=== PATIENT | female | born 1975 | race Caucasian/White ===

== ENCOUNTER → 2017-04-19 | Outpatient (CLI) | payer BC ==
--- NOTE | 2017-04-19 13:00 | MM ---
Reason for exam: screening (asymptomatic). Baseline mammogram. History: Patient history of other cancer. Physical Findings: Dr. Dixon did not find any significant physical abnormalities on exam. MG Screening Mammo w CAD Bilateral CC and MLO view(s) were taken. The breast tissue is heterogeneously dense. This may lower the sensitivity of mammography. Finding: There are typically benign calcifications in the right breast. There is no discrete abnormality. These results were verbally communicated with the patient and result sheet given to the patient on 04/19/17. ASSESSMENT: Benign, BI-RAD 2 RECOMMENDATION: Routine screening mammogram of both breasts in 1 year.
--- NOTE | 2017-04-19 13:19 | WWHP ---
DATE OF SERVICE: 04/19/2017 CHIEF COMPLAINT: The patient is here for her routine gynecologic exam and mammogram. HPI: This is a 41-year-old, G2, P2 with an LMP of 03/27/17, who is status post tubal ligation. The patient states it has been about 10 years since her last pelvic exam. She states she has a long history of heavy menstrual periods. They typically are regular every month and can last 7 days with 3 days of heavier flow. On the heavy days, she has to change her protection about every one hour and does pass clots. She denies any significant problems with menstrual pain. PAST MEDICAL HISTORY: Skin cancer and this included basal cell cancer, but also melanoma skin cancer in 2013. She has had occasional pains in her stomach, which improved with omeprazole, but apparently did not have an ulcer. MEDICATIONS: 1. Vitamin D3, 2000 units daily. 2. Iron supplement 325 mg daily. 3. Omeprazole 20 mg daily. ALLERGIES: No known drug allergies. PAST SURGICAL HISTORY: Tubal ligation in 1995, ganglion cyst removed from her left wrist in 1995, basal cell carcinoma removed in 2004, septoplasty 2012, melanoma removed in 2013. She also states she had a D&C for heavy periods in the past. PAST OB HISTORY: Two vaginal deliveries. 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 She denies any STDs in the past. SOCIAL HISTORY: She quit smoking in 2014. She has about 10 alcoholic drinks per month and denies drug use. 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 She enjoys playing volleyball. FAMILY HISTORY: Uncle had diabetes. Mother had hypertension. Uncle had heart disease. Grandfather had heart disease. She denies family history of cancer of the breast, uterus, ovaries or colon. REVIEW OF SYSTEMS: She has gained nearly 40 pounds over the last 2-1/2 years since quitting smoking. She denies respiratory, cardiac, or GI problems. PHYSICAL EXAM: Blood pressure 125/84. Height 5 feet 9 inches. Weight 211 pounds. Temperature 96.1, pulse 82. This is a well-developed, well-nourished white female who is alert and oriented x3 in no acute distress. HEENT is within normal limits. NECK: Supple without mass or thyromegaly. CHEST AND LUNGS: Clear to auscultation. HEART: Regular rate and rhythm. Breasts are without mass or discharge. Axillary exam is negative for adenopathy. BACK: Negative for CVA tenderness. ABDOMEN: Soft, nontender, without palpable masses. PELVIC EXAM: Normal external genitalia. Cervix appears multiparous and is without lesions. There is no unusual discharge. There is no evidence of prolapse. The uterus is midposition, nongravid size and nontender. There are no palpable adnexal masses or tenderness. Rectal exam is negative for mass or tenderness and is negative for occult blood. EXTREMITIES: Nontender. IMPRESSION: 1. A 41-year-old female with normal gynecologic exam. 2. Long history of hypermenorrhea with regular menses. 3. Status post tubal ligation. PLAN: 1. Pap smear was performed. 2. Self breast examination was discussed. 3. Mammogram will be done today. This will be a baseline screening mammogram. 4. Trial of meclofenamate sodium 100 mg t.i.d. p.r.n. for heavy menstrual flow up to 6 days per cycle. If she does not notice any significant improvement over the next 3 months she will call. At that time we can discuss the option of endometrial ablation. 5. Pelvic ultrasound will be scheduled to further evaluate the uterus because of her hypermenorrhea. 6. She will also return in one year. ANDRES
== END | disposition home or self-care (01) ==
LOC: WWCWWP 09:14
PROVIDERS: ATTEND Obstetrics & Gynecology
DX: Z12.31 Encounter for screening mammogram for malignant neoplasm of breast (principal)

== ENCOUNTER → 2019-09-28 | Outpatient (CLI) | payer BC ==
--- NOTE | 2019-10-01 08:57 | MM ---
Reason for exam: screening (asymptomatic). Last mammogram was performed 2 years and 5 months ago. History: Patient history of other cancer. Physical Findings: A clinical breast exam by your physician is recommended on an annual basis and results should be correlated with mammographic findings. MG 3D Screening Mammo W/Cad Bilateral CC and MLO view(s) were taken. Prior study comparison: April 19, 2017, bilateral MG screening mammo w CAD. The breast tissue is extremely dense which could obscure a lesion on mammography. No suspicious abnormality. No significant changes when compared with prior studies. ASSESSMENT: Negative, BI-RAD 1 RECOMMENDATION: Routine screening mammogram of both breasts in 1 year.
== END | disposition home or self-care (01) ==
LOC: RADMAMWWP 08:18
PROVIDERS: ATTEND Family Medicine
DX: Z12.39 Encounter for other screening for malignant neoplasm of breast (principal)
CPT/HCPCS: 77063; 77067

== ENCOUNTER → 2021-03-24 | Outpatient (CLI) | payer BC ==
[2021-03-24 10:46] VITALS: BP 131/80; PULSE 71; RESP 16; TEMP 98
--- NOTE | 2021-03-24 11:42 | P.HPOB ---
History of Present Illness H&P Date: 03/24/21 Chief Complaint: The patient is here for her routine gynecologic exam and ma mmogram. This is a 45-year-old with an LMP of 03/08/2021. The patient is status post tubal ligation. Her menstrual periods are regular every month but continue to be quite heavy. They typically last 5 days with 3 days of heavier flow. She often has to use double protection and has to change her protection up to every 1 hour. She does have some mild cramping which is not a big problem for her. She is currently in the process of getting a divorce. She has been with her new boyfriend for about 1 year and they do live together. They are sexually active and do not use condoms. She was experiencing some discharge with slight odor and was treated for bacterial vaginosis by her PCP about 2 months ago. The odor has improved but still notices a slight thin milky discharge and some vaginal irritation near the opening. Review of Systems She has lost about 45 pounds over the past 4 years. She denies respiratory, cardiac, or GI problems. Past Medical History Past Medical History: Cancer Additional Past Medical History / Comment(s): HX OF SKIN CA-basal cell, HX OF HEART PALPITATIONS IN PAST. 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 History of Any Multi-Drug Resistant Organisms: None Reported Past Surgical History: Heart Catheterization, Orthopedic Surgery, Tubal Ligation Additional Past Surgical History / Comment(s): LEFT WRIST GANGLION CYST REMOVED, BASAL CELL REMOVED FROM FACE, SEPTOPLASTY, melanoma removed from chest and abd Additional Past Anesthesia/Blood Transfusion Reaction / Comment(s): STATES GET HEADACHES POST OP Past Psychological History: No Psychological Hx Reported Smoking Status: Former smoker Past Alcohol Use History: Occasional (2 or 3 per week.) Additional Past Alcohol Use History / Comment(s): Quit smoking in 2014. Past Drug Use History: None Reported Additional History: She is in the process of getting a divorce. She has been with her boyfriend since 2019 and do live together. 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 - Past Family History Mother Family Medical History: Hypertension Uncle Family Medical History: Diabetes Mellitus Additional Family Medical History / Comment(s): Heart disease. Medications and Allergies Home Medications Medication Instructions Recorded Confirmed Type Multivitamins, Thera [Multivitamin] 1 tab PO DAILY 09/23/15 03/24/21 History Allergies Allergy/AdvReac Type Severity Reaction Status Date / Time codeine Allergy Rash/Hives Unverified 03/24/21 10:39 Exam Vital Signs Temp Pulse Resp BP Pulse Ox 03/24/21 10:40 98.0 F 71 16 131/80 98 Intake and Output 03/23/21 03/24/21 03/24/21 22:59 06:59 14:59 Other: Weight 75.296 kg Height 5 feet 8 inches, weight 166 pounds, BMI 25.2. This is a well-developed well-nourished white female who is alert and oriented times 3 in no acute distress. HEENT: Within normal limits. NECK: Supple without mass or thyromegaly. CHEST AND LUNGS: Clear to auscultation. HEART: Regular rate and rhythm. BREASTS: Are without mass or discharge. AXILLARY EXAM: Negative for adenopathy. BACK: Negative for CVA tenderness. ABDOMEN: Soft, nontender, without palpable masses. PELVIC EXAM: Normal external genitalia. Cervix and vagina appear normal. There is no unusual discharge. There is no evidence of prolapse. The uterus is midposition, nongravid size and nontender. There are no palpable adnexal masses or tenderness. RECTAL EXAM: negative for mass or tenderness and is negative for occult blood. EXTREMITIES: Nontender. IMPRESSION: 1. 45-year-old female status post tubal ligation with normal gynecologic exam. 2. Complaint of slight discharge and slight vaginal irritation. The patient was treated for bacterial vaginosis 2 months ago with some improvement. Differential diagnosis will include Physiologic discharge, luke vaginitis, bacterial vaginosis, Trichomonas, GC and chlamydia. 3. Hypermenorrhea not improved with meclofenamate sodium PLAN: 1. Pap smear cotest was performed. 2. Self breast awareness was discussed with the patient. 3. Affirm vaginitis panel was obtained from the vagina to check for luke, Gardnerella, and Trichomonas. 4. GC and Chlamydia testing was obtained from the cervix. 5. STD prevention was discussed with the patient. I have stressed the importance of limiting sexual partners. 6. Blood STD testing was offered, but declined at this time. 7. We have discussed options for her hypermenorrhea including oral contraception, the Mirena IUD and endometrial ablation. She is interested in getting the endometrial ablation. She will be referred to Dr. Ponce for this. The ACOG FAQ handout on endometrial ablation was given to the patient. 8. She was advised to return in one year for her annual well woman exam and as needed.
[2021-03-25 04:54] LABS: Gardnerella Negative (Negative); Source Vagina; Trichomonas Negative (Negative)
--- NOTE | 2021-03-25 08:44 | MM ---
Reason for exam: screening (asymptomatic). Last mammogram was performed 1 year and 6 months ago. History: Patient history of other cancer. Physical Findings: A clinical breast exam by your physician is recommended on an annual basis and results should be correlated with mammographic findings. MG 3D Screening Mammo W/Cad Bilateral CC and MLO view(s) were taken. Prior study comparison: September 28, 2019, bilateral MG 3d screening mammo w/cad. April 19, 2017, bilateral MG screening mammo w CAD. The breast tissue is extremely dense which could obscure a lesion on mammography. Stable scattered punctate calcification right breast. There is no discrete abnormality. No significant changes when compared with prior studies. ASSESSMENT: Benign, BI-RAD 2 RECOMMENDATION: Routine screening mammogram of both breasts in 1 year.
--- NOTE | 2021-03-25 13:00 | P.PN ---
Progress Note - Text Progress Note Date: 03/25/21 OUTPATIENT FOLLOW-UP NOTE TEST(S)/RESULTS: Affirm vaginitis panel testing done on 03/24/2021 was negative for Zoe, Gardnerella, and Trichomonas. METHOD OF NOTIFICATION: Patient was notified by phone. PATIENT COMMENTS: DIAGNOSIS: Negative affirm testing for Zoe, Gardnerella, and Trichomonas. DISCUSSION: Other tests are still pending including GC, chlamydia and Pap smear test. We have had a discussion regarding ways to maintain good vaginal health. PLAN: As above. Await additional testing from 03/24/2021.
[2021-03-25 14:31] LABS: C. trachomatis,PCR Negative (Neg,Equiv); Chlamydia trachomatis Source Cervix; N. gonorrhoeae,PCR Negative (Neg,Equiv); Neisseria Source Cervix
== END ==
LOC: WWCWWP 10:32
PROVIDERS: ATTEND Obstetrics & Gynecology
DX: Z01.419 Encounter for gynecological examination (general) (routine) without abnormal findings (principal); N89.8 Other specified noninflammatory disorders of vagina; Z12.31 Encounter for screening mammogram for malignant neoplasm of breast; N92.0 Excessive and frequent menstruation with regular cycle; Z85.820 Personal history of malignant melanoma of skin; Z87.891 Personal history of nicotine dependence; Z98.51 Tubal ligation status
CPT/HCPCS: 77063; 77067; 87480; 87491; 87510; 87591; 87660

== ENCOUNTER → 2021-04-14 | Outpatient (CLI) | payer BC ==
[2021-04-14 12:30] LABS: Anisocytosis Slight; Basophils % (A) 0 %; Eosinophils % (A) 0 %; HCT 38.3 % (34.0-46.0); HGB 12.7 gm/dL (11.4-16.0); Lymphocytes % (A) 13 %; MCH 30.1 pg (25.0-35.0); MCHC 33.1 g/dL (31.0-37.0); MCV 90.8 fL (80.0-100.0); Mean Platelet Volume 7.1; Monocytes # (A) 0.3 k/uL (0-1.0); Monocytes % (A) 4 %; Neutrophils # (A) 6.1 k/uL (1.3-7.7); Neutrophils % (A) 82 %; Platelet Count 276 k/uL (150-450); RBC 4.22 m/uL (3.80-5.40); RDW 16.3 % (11.5-15.5); WBC 7.4 k/uL (3.8-10.6)
== END | disposition home or self-care (01) ==
LOC: LABPAT 11:26
PROVIDERS: ATTEND Obstetrics & Gynecology
DX: Z01.812 Encounter for preprocedural laboratory examination (principal); N92.0 Excessive and frequent menstruation with regular cycle
CPT/HCPCS: 36415; 85025

== ENCOUNTER 2021-04-17 09:42 | Day surgery (SDC) | payer BC ==
[2021-04-14 15:35] VITALS: BMI 23.6
[~2021-04-17 09:42] MED LIST: DEXAMETHASONE SOD PHOSPHATE 4 MG/ML 1 ML VIAL IV ONE; LACTATED RINGERS 1,000 ML IV SCH; MIDAZOLAM 2 MG/2 ML VIAL IV PRN; ONDANSETRON 4 MG/2 ML VIAL IVP ONE; Pre Op ABX Message 1 EACH MISC MISCELLANE ONE; SCOPOLAMINE 1.5MG/72HR PATCH TRANSDERM ONE; fentaNYL (PF) 50 MCG/ML 2 ML AMP IV PRN
[2021-04-17] MEDS ORDERED: fentaNYL (PF) 50 MCG/ML 2 ML AMP ONE (12:02)
[2021-04-17] MEDS ORDERED: KETOROLAC 15 MG/ML 1 ML VIAL ONE (12:02)
[2021-04-17] MEDS ORDERED: MIDAZOLAM 2 MG/2 ML VIAL ONE (12:02)
[2021-04-17] MEDS ORDERED: LIDOCAINE 1% INJ 10MG/ML (20 ML MDV) ONE (12:02)
[2021-04-17] MEDS ORDERED: PROPOFOL 10 MG/ML 20 ML VIAL IV ONE (12:02)
[2021-04-17] MEDS ORDERED: LACTATED RINGERS 1,000 ML IV ONE ×2 (12:41→12:50)
[2021-04-17] MEDS ORDERED: ONDANSETRON 4 MG/2 ML VIAL IVP PRN (12:44)
[2021-04-17] MEDS ORDERED: SIMETHICONE 80 MG CHEWABLE PO PRN (12:44)
[2021-04-17] MEDS ORDERED: KETOROLAC 15 MG/ML 1 ML VIAL IVP PRN (12:44)
[2021-04-17] MEDS ORDERED: diphenhydrAMINE 50 MG/ML 1 ML VIAL IVP PRN (12:44)
[2021-04-17] MEDS ORDERED: METOCLOPRAMIDE 5 MG/ML 2 ML VIAL IVP PRN (12:44)
[2021-04-17] MEDS ORDERED: IBUPROFEN 600 MG TAB PO PRN (12:44)
[2021-04-17] MEDS ORDERED: LACTATED RINGERS 1,000 ML IV SCH (12:45)
--- NOTE | 2021-04-17 12:54 | P.OP ---
Date of Procedure: 04/17/21 Preoperative Diagnosis: #1. Menorrhagia #2 anemia Postoperative Diagnosis: Same plus #3. Possible endometrial polyp Procedure(s) Performed: #1. Diagnostic hysteroscopy #2. Dilation and curettage #3. NovaSure endometrial ablation Anesthesia: other (Gen. by LMA) Surgeon: Donal Ponce Estimated Blood Loss (ml): 5 IV fluids (ml): 300 Urine output (ml): 150 Pathology: other (Endometrial curettings, possible polyp) Condition: stable Disposition: PACU Operative Findings: Preoperatively, the patient was found with a roughly 5 week anteverted mobile normal shaped uterus with normal adnexa bilaterally. Intraoperatively, the u terus sounded to 9 cm with a cervical length of approximately 3.5 cm. Using the hysteroscope, there was a moderate amount of shaggy tissue noted throughout the endometrial cavity. The bilateral tubal ostia were seen. Was a small structure that appeared consistent with a small polyp on the patient's right posterior lower uterine segment which was thought to been removed with the polyp forceps. There was a small to moderate amount of tissue removed with and major curettage which was done secondary to the amount of tissue noted with the scope. The settings for the NovaSure tool where a length of 5.5 cm, a width of 4.7 cm for a total power 142 W. After a run time of 86 seconds, the base unit read "procedure complete." The postprocedural result appeared to be excellent. The patient is an adequate candidate for vaginal hysterectomy should it become necessary. Description of Procedure: The patient was prepped and draped in usual fashion after general anesthesia was achieved by the anesthesiologist. A weighted speculum was placed and the bladder drained of approximately 150 mL of clear fatoumata urine. The anterior lip the cervix was grasped with a single-tooth tenaculum and the uterus and cervix sounded to 9 cm and 3.5 cm as noted above. The cervix was serially dilated to admit the diagnostic hysteroscope which was placed in the fundus and the cavity dilated with normal saline. The findings are as noted above with a fairly significant amount of shaggy tissue throughout the endometrial cavity and one specific spot in the right posterior lower uterine segment the lateral edge which appeared to be polypoid in nature. As a result, the decision was made to proceed with curettage. The scope was set aside and a Telfa placed in the vagina. A small sharp curette was introduced into the endometrial cavity and thorough and circumferential curettage carried out removing the tissue onto the Telfa in the vagina. The small to moderate amount of tissue was returned. After adequate curettage and several passes, the sharp curet was set aside and the polyp forceps introduced with specific attention paid to the area of concern for the polyp. After the first pass, there did appear to be a polypoid structure removed. Was included with the pathology for curettage. Several further passes were made with polyp forceps with minimal return of tissue. After adequate curettage and use of the polyp forceps, the NovaSure tool was placed into the endometrial cavity, opened, and seated well. The settings for the tool where a length of 5.5 cm, a width of 4.7 cm for a total power of 142 W. The cervix was sealed and the cavity check was attempted and passed without difficulty allowing us to enable the tool. The run was started and, after a total run time of 86 seconds, the base unit read "procedure complete." The tool was removed and discarded and the diagnostic scope replaced with result appearing to be excellent. The patient is a possible candidate for vaginal hysterectomy should it become necessary in the future. All instrumentation was removed from the patient including the tenaculum. There was no ongoing bleeding from either the cervix or the tenaculum sites. I spent a blood loss for the entire case was 5 mL or less. There are no complications. All sponge, instrument, needle counts were correct. The patient tolerated the procedure well and proceeded to the recovery room in stable condition.
[2021-04-17 12:59] VITALS: TEMP 96.9
[2021-04-17 13:23] VITALS: RESP 16
[2021-04-17] MEDS ORDERED: ACETAMINOPHEN TAB 500 MG TAB PO ONE (14:00)
[2021-04-17] MEDS ORDERED: ACETAMINOPHEN TAB 500 MG TAB ONE (14:00)
[2021-04-17 14:20] VITALS: BP 145/86; PULSE 66
[2021-04-18] MEDS ORDERED: ACETAMINOPHEN TAB 325 MG TAB PO PRN (12:45)
== END 2021-04-17 14:47 | disposition home or self-care (01) ==
LOC: OR 09:42
PROVIDERS: ATTEND Obstetrics & Gynecology
DX: N92.0 Excessive and frequent menstruation with regular cycle (principal); D64.9 Anemia, unspecified; Z85.828 Personal history of other malignant neoplasm of skin; Z98.51 Tubal ligation status; Z98.890 Other specified postprocedural states; Z82.49 Family history of ischemic heart disease and other diseases of the circulatory system; Z83.3 Family history of diabetes mellitus; Z87.891 Personal history of nicotine dependence; Z88.5 Allergy status to narcotic agent; R00.2 Palpitations
CPT/HCPCS: 81025; 88305; 58563; J2250; J1100; J2405; J2001; J3010; J1885; J2704

== ENCOUNTER → 2023-04-13 | Outpatient (CLI) | payer BC ==
--- NOTE | 2023-04-13 10:52 | MM ---
Reason for Exam: Screening (asymptomatic). Last mammogram was performed 2 year(s) and 1 month(s) ago. Patient History: Menarche at age 11. First Full-Term at age 19. Risk Values: Annabella 5 year model risk: 0.8%. NCI Lifetime model risk: 8.2%. Prior Study Comparison: 04/19/2017 Bilateral Screening Mammogram, [facility]. 09/28/2019 Bilateral Screening Mammogram, [facility]. 03/24/2021 Bilateral Screening Mammogram, [facility]. Tissue Density: The breast tissue is extremely dense which could obscure a lesion on mammography. Findings: Analyzed By CAD. There is no suspicious group of microcalcifications or new suspicious mass in either breast. Benign-appearing round calcifications within both breasts. Overall Assessment: Benign, BI-RAD 2 Management: Screening Mammogram of both breasts in 1 year. A clinical breast exam by your physician is recommended on an annual basis and results should be correlated with mammographic findings. Electronically signed and approved by: Gera Jordan D.O.
--- NOTE | 2023-04-13 11:54 | P.HPOB ---
History of Present Illness H&P Date: 04/13/23 Chief Complaint: The patient is here for her routine gynecologic exam and ma mmogram. This is a 47-year-old with an LMP of 03/22/2023. She is status post tubal ligation and status post endometrial ablation in 2020. The endometrial ablation was done for heavy menstrual flow. She states she still has regular monthly periods lasting 7 days but the flow is very light, to the point where she usually does not have to wear protection. She does have regular menstrual cr amps which are not a problem. She is without gynecologic complaints. Review of Systems The patient has lost 4 pounds over the last 2 years. She denies respiratory or cardiac problems. GI: Some constipation which is not new for her. Past Medical History Past Medical History: Cancer Additional Past Medical History / Comment(s): HX OF SKIN CA-basal cell, HX OF HEART PALPITATIONS IN PAST. 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 History of Any Multi-Drug Resistant Organisms: None Reported Past Surgical History: Heart Catheterization, Orthopedic Surgery, Tubal Ligation, Uterine Ablation Additional Past Surgical History / Comment(s): LEFT WRIST GANGLION CYST REMOVED, BASAL CELL REMOVED FROM FACE, SEPTOPLASTY, melanoma removed from chest and abd. Endometrial ablation 2020. Additional Past Anesthesia/Blood Transfusion Reaction / Comment(s): STATES GET HEADACHES POST OP Past Psychological History: No Psychological Hx Reported Smoking Status: Former smoker Past Alcohol Use History: Occasional (0-3 per week) Additional Past Alcohol Use History / Comment(s): Quit smoking in 2014. Past Drug Use History: None Reported Additional History: She is . She has been with her boyfriend since 2019 and they live together. 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 - Past Family History Mother Family Medical History: Hypertension Uncle Family Medical History: Diabetes Mellitus Additional Family Medical History / Comment(s): Heart disease. Medications and Allergies Home Medications Medication Instructions Recorded Confirmed Type Phentermine HCl [Adipex P] 15 mg PO DAILY 04/13/23 04/13/23 History Topiramate [Trokendi Xr] 25 mg PO DAILY 04/13/23 04/13/23 History Allergies Allergy/AdvReac Type Severity Reaction Status Date / Time codeine Allergy Rash/Hives Unverified 04/13/23 10:47 Exam Blood pressure 144/88, height 5 feet 9 inches, weight 162 pounds, BMI 24, temperature 98.0, pulse 72, pulse oximeter 99%. This is a well-developed well-nourished white female who is alert and oriented times 3 in no acute distress. HEENT: Within normal limits. NECK: Supple without mass or thyromegaly. CHEST AND LUNGS: Clear to auscultation. HEART: Regular rate and rhythm. BREASTS: Are without mass or discharge. AXILLARY EXAM: Negative for adenopathy. BACK: Negative for CVA tenderness. ABDOMEN: Soft, nontender, without palpable masses. PELVIC EXAM: Normal external genitalia. Cervix and vagina appear normal. There is no unusual discharge. There is no evidence of prolapse. The uterus is midposition, nongravid size and nontender. There are no palpable adnexal masses or tenderness. RECTAL EXAM: negative for mass or tenderness and is negative for occult blood. EXTREMITIES: Nontender. IMPRESSION: 1. 47-year-old female who is status post tubal ligation and endometrial ablatio n with light regular menstrual periods and normal gynecologic exam PLAN: 1. Pap smear was deferred since she had a negative Pap smear cotest on 03/24/2021. 2. Self breast awareness was discussed with the patient. We have also discussed symptoms associated with inflammatory breast cancer. 3. Screening mammogram was done today and was benign. 4. Osteoporosis prevention was discussed. I have stressed the importance of adequate calcium, vitamin D and regular exercise. Recommended amounts of calcium and vitamin D were also discussed. 5. Colorectal cancer screening was discussed. I have recommended that she discuss options with her PCP. 6. She was advised to return in one year for her annual well woman exam.
[2023-04-13 11:58] VITALS: BP 144/88; PULSE 72; RESP 12; TEMP 98
== END | disposition home or self-care (01) ==
LOC: RADMAMWWP 10:08
PROVIDERS: ATTEND Obstetrics & Gynecology
DX: Z12.31 Encounter for screening mammogram for malignant neoplasm of breast (principal); Z83.3 Family history of diabetes mellitus
CPT/HCPCS: 77063; 77067

== ENCOUNTER → 2023-06-07 | Outpatient (CLI) | payer BC ==
[2023-06-07 13:41] VITALS: BP 119/84; PULSE 92; RESP 17; TEMP 97.9
--- NOTE | 2023-06-07 14:53 | USB ---
Reason for Exam: Clinical finding. Patient History: Menarche at age 11. First Full-Term at age 19. Risk Values: Annabella 5 year model risk: 0.9%. NCI Lifetime model risk: 8.0%. Technique: Method: Targeted. Prior Study Comparison: 09/28/2019 Bilateral Screening Mammogram, [facility]. 03/24/2021 Bilateral Screening Mammogram, [facility]. 04/13/2023 Bilateral MG 3D screening mammo w/cad, [facility]. Findings: The whole breast of the left breast, the axilla of the left breast and the retroareolar of the left breast were scanned. Imaged: Ultrasound imaging of: Area of concern, retroareolar region and axilla. No evidence for organizing fluid collection or mass. Overall Assessment: Negative, BI-RAD 1 Management: Screening Mammogram of both breasts in 1 year. A clinical breast exam by your physician is recommended on an annual basis and results should be correlated with mammographic findings. This exam should not preclude additional follow-up of suspicious palpable abnormalities. Results were given to the patient verbally at the time of exam. Electronically signed and approved by: Jordan Noel DO
--- NOTE | 2023-06-07 16:53 | P.PN ---
Progress Note - Text Progress Note Date: 06/07/23 Chief Complaint: Left breast lump felt during the past 1 week. HPI: This is a 48-year-old with an LMP of 05/30/2023. She is status post tubal ligation and endometrial ablation. She was here for her annual well woman examination on 04/13/2023 at which time she had a normal breast exam and was not complaining of any breast abnormalities. She states 1 week ago she detected a lump in the left breast at approximately the 1 to 2 o'clock position. She describes it as being about grape size. She denies any significant pain and denies any nipple discharge. She denies trauma to the breast. She also denies fever. ROS: Comparing her weights from her office visits, She has lost about 6 pounds over the past 6 weeks. She denies respiratory, cardiac, or GI problems. PE: Blood pressure: 119/84, Height: 5 feet 9 inches, Weight: 156 pounds, Temperature: 97.9, Pulse: 92. This is a well developed, well nourished, [] female who is alert and orientedx3, in no acute distress. Bilateral breasts appear symmetric without significant dimpling or bruising. There is moderate fibrous tissue throughout both breasts. At the 1-2 o'clock position of the left breast there is a 1.5 x 1.5 cm firmer tissue area approximately 4-5 cm from the areola. This is nontender and mobile. There are no other significant masses noted with exam. There is no nipple discharge. There is no evidence of nipple inversion. Axillary exam is negative bilaterally. Impression: 1. 48-year-old pre-menopausal female with a finding of a left breast lump at the 1 to 2 o'clock position. Differential diagnosis will include prominent benign fibroglandular tissue, breast cyst, fibrocystic changes of the breast, other benign neoplasm of the breast, and less likely, malignancy. Also possible breast exam changes following weight loss. Plan: 1. Diagnostic mammogram of the left breast with left breast ultrasound will be done today. 2. I have reassured the patient that I do not believe this is likely a malignancy being that she did have a benign exam and benign mammogram about 2 months ago. We have discussed how weight loss can sometimes make the fibrous tissue more prominent as well as how there can be common physiologic changes in the breast tissue during the menstrual cycle as well. Time spent with the patient: 15 minutes
--- NOTE | 2023-06-09 11:56 | MM ---
Reason for Exam: Clinical finding. Last screening mammogram was performed 2 month(s) ago. Indicated Problems: Lump or thickening of the left side for 1 Week(s). Patient History: Menarche at age 11. First Full-Term at age 19. Risk Values: Annabella 5 year model risk: 0.9%. NCI Lifetime model risk: 8.0%. Prior Study Comparison: 09/28/2019 Bilateral Screening Mammogram, [facility]. 03/24/2021 Bilateral Screening Mammogram, [facility]. 04/13/2023 Bilateral MG 3D screening mammo w/cad, [facility]. Tissue Density: Left: The breast tissue is heterogeneously dense. This may lower the sensitivity of mammography. Findings: Analyzed By CAD. Nothing to correlate with palpable abnormality. No new suspicious masses, calcifications or distortions. Overall Assessment: Incomplete: need additional imaging evaluation, BI-RAD 0 Management: Diagnostic Breast Ultrasound of the left breast. Results were given to the patient verbally at the time of exam. Patient should continue monthly self-breast exams. A clinical breast exam by your physician is recommended on an annual basis. This exam should not preclude additional follow-up of suspicious palpable abnormalities. Note on Annabella scores and lifetime risk: 1. A Annabella score greater than 3% is considered moderate risk. If this is the case, consider specialist referral to assess eligibility for a risk reducing agent. 2. If overall lifetime risk for the development of breast cancer is 20% or higher, the patient may qualify for future screening with alternating mammogram and breast MRI. Electronically signed and approved by: Jordan Noel DO
== END ==
LOC: WWCWWP 13:14
PROVIDERS: ATTEND Obstetrics & Gynecology
DX: N95.1 Menopausal and female climacteric states (principal); N63.21 Unspecified lump in the left breast, upper outer quadrant; N60.11 Diffuse cystic mastopathy of right breast; Z98.51 Tubal ligation status; Z88.5 Allergy status to narcotic agent; Z87.891 Personal history of nicotine dependence
CPT/HCPCS: 77061; 77065

== ENCOUNTER 2023-11-03 11:24 | Emergency (ER) | payer BC ==
[2023-11-03 11:50] VITALS: TEMP 98.4
--- NOTE | 2023-11-03 12:10 | ED ---
Chest Pain HPI - General Source: patient, RN notes reviewed Mode of arrival: wheelchair Limitations: no limitations <Rigo Sung - Last Filed: 11/03/23 12:08> - General Source: patient, RN notes reviewed, old records reviewed <Jorge Cee - Last Filed: 11/03/23 14:36> <Amina Carey - Last Filed: 11/04/23 00:14> - General Chief Complaint: Chest Pain Stated Complaint: Chest Pain Time Seen by Provider: 11/03/23 11:40 - History of Present Illness Initial Comments: 48-year-old female presents emergency Department with chief complaint chest pain. Patient states is primarily right-sided worse with deep inspiration she feels short of breath. Patient states that she did recently travel to [place]. Patient also states that her grandkids have RSV. Patient reports no fever or chills. Patient states the pain has let up some but she still has constant pain that is worse with movement. (Rigo Sung) Patient is a 48-year-old female who presents emergency Department complaining of what seems to be mostly chest wall pain. Started this morning approximately 1:30 AM. She is a side sleeper. Is complaining of sternal chest pain with radiation along a rib on the right side. Worse on movement, palpation. No ra diation of the pain. No nausea or vomiting. No lightheadedness. No obvious injury. Patient does have a significant family cardiac history. His no other acute complaints at this time. Presents for further evaluation. Denies any recent travel, lower swelling, shortness of breath. Patient originally seen as a quick note. Denies any fevers, chills, cough. (Jorge Cee) - Related Data Home Medications Medication Instructions Recorded Confirmed Phentermine HCl [Adipex P] 15 mg PO DAILY 04/13/23 11/03/23 Meloxicam [Mobic] 7.5 mg PO BID PRN 11/03/23 11/03/23 Topiramate [Topamax] 25 mg PO TID 11/03/23 11/03/23 Allergies Allergy/AdvReac Type Severity Reaction Status Date / Time codeine AdvReac Hallucinati Unverified 11/03/23 14:14 ons Review of Systems ROS Other: All systems not noted in ROS Statement are negative. <Rigo Sung - Last Filed: 11/03/23 12:08> ROS Other: All systems not noted in ROS Statement are negative. <Jorge Cee - Last Filed: 11/03/23 14:36> ROS Other: All systems not noted in ROS Statement are negative. <Amina Carey Carmelo - Last Filed: 11/04/23 00:14> ROS Statement: Those systems with pertinent positive or pertinent negative responses have been documented in the HPI. Review of Systems: CONST: Denies fever EYES: Denies blurry vision ENT: Denies nasal congestion C/V: Endorses chest wall pain RESP: Denies shortness of breath GI: Denies abdominal pain : Denies dysuria SKIN: Denies rash. MSK: Denies joint pain. NEURO: Denies headache (Jorge Cee) EKG Findings - EKG Comments: EKG Findings:: 12-lead Electrocardiogram Interpretation Note. EKG was reviewed and interpreted by myself. 12-lead ECG performed at 1138 is interpreted by me as revealing normal sinus rhythm at a rate of 96 beats per minute. [place] is normal. TN interval is 126 ms, QRS duration is 85 ms, QTc is 394 ms.. There were no ST or T wave abnormalities to suggest myocardial ischemia or injury. R wave progression across the precordium was satisfactory. By my interpretation this EKG is non-diagnostic for acute ischemia. - EKG Results: EKG: interpreted by ERMD <Jorge Cee - Last Filed: 11/03/23 14:36> Past Medical History Past Medical History: Cancer Additional Past Medical History / Comment(s): HX OF SKIN CA-basal cell, HX OF HEART PALPITATIONS IN PAST. 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 History of Any Multi-Drug Resistant Organisms: None Reported Past Surgical History: Heart Catheterization, Orthopedic Surgery, Tubal Ligation, Uterine Ablation Additional Past Surgical History / Comment(s): LEFT WRIST GANGLION CYST REMOVED, BASAL CELL REMOVED FROM FACE, SEPTOPLASTY, melanoma removed from chest and abd. Endometrial ablation 2020. Additional Past Anesthesia/Blood Transfusion Reaction / Comment(s): STATES GET HEADACHES POST OP Past Psychological History: No Psychological Hx Reported Smoking Status: Former smoker Past Alcohol Use History: Rare Past Drug Use History: None Reported - Past Family History Mother Family Medical History: Hypertension Uncle Family Medical History: Diabetes Mellitus Additional Family Medical History / Comment(s): Heart disease. <Rigo Sung - Last Filed: 11/03/23 12:08> General Exam Limitations: no limitations <Rigo Sung - Last Filed: 11/03/23 12:08> <Jorge Cee - Last Filed: 11/03/23 14:36> - General Exam Comments Initial Comments: Visual Physical Exam Vital signs reviewed General: Well-appearing, nontoxic, no acute distress. Head: Normocephalic, atraumatic Eyes: PERRLA, EOMI ENT: Airway patent Chest: Nonlabored breathing Skin: No visual rash, normal skin tone Neuro: Alert and oriented 3 Musculoskeletal: No gross abnormalities (Rigo Sung) General: Appears in no acute distress. HEAD: Normal with no signs of head trauma. EYES: PERRLA, EOMI, conjunctiva normal, no discharge. ENT: Hearing grossly intact, normal oropharynx. RESPIRATORY: Clear breath sounds bilaterally. No wheezes, rales, or rhonchi. C/V: Regular rate and rhythm. S1 and S2 auscultated, no edema, peripheral pulses 2+ and intact throughout. Patient has reproducible chest wall pain on palpation. ABD: Abd is soft, nontender, nondistended EXT: Normal range of motion, no obvious deformity SKIN: No rashes or lesions observed on exposed skin. NEURO: Alert and oriented x 4. Cranial nerves II-XII intact. No focal sensory or strength deficits. (Jorge Cee) Course Vital Signs 11/03/23 11/03/23 11/03/23 11:30 12:33 13:30 Temperature 98.4 F Pulse Rate 101 H 86 87 Respiratory 18 20 16 Rate Blood Pressure 145/81 139/89 130/89 O2 Sat by Pulse 100 98 98 Oximetry 11/03/23 17:41 Temperature Pulse Rate 90 Respiratory 18 Rate Blood Pressure 137/85 O2 Sat by Pulse 100 Oximetry Chest Pain MDM <Rigo Sung - Last Filed: 11/03/23 12:08> <Jorge Cee - Last Filed: 11/03/23 14:36> <Amina Carey - Last Filed: 11/04/23 00:14> - MDM I completed the quick note portion of this chart signed Rigo Sung PA-C (Rigo Sung) Was pt. sent in by a medical professional or institution (, [facility], GORE STITCHER, urgent care, hospital, or assisted...) When possible be specific @ -No Did you speak to anyone other than the patient for history (EMS, parent, family, police, friend...)? What history was obtained from this source @ -No Did you review nursing and triage notes (agree or disagree)? Why? @ -I reviewed and agree with nursing and triage notes Were old charts reviewed (outside hosp., previous admission, EMS record, old EKG, old radiological studies, urgent care reports/EKG's, assisted records)? Report findings @ -Old charts reviewed Differential Diagnosis (chest pain, altered mental status, abdominal pain women, abdominal pain men, vaginal bleeding, weakness, fever, dyspnea, syncope, headache, dizziness, GI bleed, back pain, seizure, CVA, palpatations, mental health, musculoskeletal)? @ -Differential Chest Pain: Stable Angina, Unstable Angina, STEMI, NSTEMI Aortic Dissection, Pneumothorax, Musculoskeletal, Esophageal Spasm GERD, Cholecystitis, Pancreatitis, Zoster, this is not meant to be an all-inclusive list. EKG interpreted by me (3pts min.). @ -As above X-rays interpreted by me (1pt min.). @ -Chest x-ray reveals no obvious acute cardio pulmonary process. CT interpreted by me (1pt min.). @ -None done U/S interpreted by me (1pt. min.). @ -None done What testing was considered but not performed or refused? (CT, X-rays, U/S, labs)? Why? @ -None What meds were considered but not given or refused? Why? @ -None Did you discuss the management of the patient with other professionals (professionals i.e. [facility] Moreno, GORE STITCHER, lab, RT, psych nurse, socially responsible investment adviser, body masker, teacher, hydrological technical officer, telephonic nurse case manager)? Give summary @ -No Was smoking cessation discussed for >3mins.? @ -No Was critical care preformed (if so, how long)? @ -No Were there social determinants of health that impacted care today? How? (Homelessness, low income, unemployed, alcoholism, drug addiction, transportation, low edu. Level, literacy, decrease access to med. care, retirement, rehab)? @ -No Was there de-escalation of care discussed even if they declined (Discuss DNR or withdrawal of care, Hospice)? DNR status @ -No What co-morbidities impacted this encounter? (DM, HTN, Smoking, COPD, CAD, Cancer, CVA, ARF, Chemo, Hep., AIDS, mental health diagnosis, sleep apnea, morbid obesity)? @ -None Was patient admitted / discharged? Hospital course, mention meds given and route, prescriptions, significant lab abnormalities, going to OR and other pertinent info. @ -Based on the patient's presentation and physical exam, patient presents with reproducible chest wall pain on palpation. Appears to be more musculoskeletal nature however she does have a significant family cardiac history and therefore we will obtain cardio pulmonary workup including screening d-dimer. She was in agreement with this plan. She'll be sent likely treatment with IV Toradol, lidocaine patch. Vital signs are within acceptable limits. EKG showed no signs of acute ischemia. Chest x-ray shows no obvious acute cardio probably process. Patient's laboratory studies are remarkable for an undetectable troponin. Remainder the labs within normal limits including a d- dimer within normal limits. On reevaluation, patient is feeling somewhat improved. We did discuss her workup. Patient's heart score is low at 2-3. It does appear to be chest wall pain. We discussed obtaining a second troponin at the 3 hour rose and if this is within acceptable limits, patient will be discharged home. She was in agreement this plan. She'll be given a muscle relaxer at this time. At this time as the enema shift. Patient is admitted to Dr. Carey pending results of repeat troponin. Undiagnosed new problem with uncertain prognosis? @ -No Drug Therapy requiring intensive monitoring for toxicity (Heparin, Nitro, Insulin, Cardizem)? @ -No Were any procedures done? @ -No Diagnosis/symptom? @ -Chest wall pain Acute, or Chronic, or Acute on Chronic? @ -Acute Uncomplicated (without systemic symptoms) or Complicated (systemic symptoms)? @ -Uncomplicated Side effects of treatment? @ -No Exacerbation, Progression, or Severe Exacerbation? @ -No Poses a threat to life or bodily function? How? (Chest pain, [place], [place], pneumonia, PE, COPD, DKA, ARF, appy, cholecystitis, CVA, Diverticulitis, Homicidal, Suicidal, threat to staff... and all critical care pts) @ -Unlikely (Jorge Cee) Patient was signed out to me pending second troponin. Second troponin is negative. Discuss results with patient. She is eager to go home. Instructed her to follow up with her primary care doctor for further cardiac testing to include echo and Holter monitoring. Return for any new or worsening symptoms. Patient was agreeable to plan and discharged in stable condition (Amina Carey) Disposition <Rigo Sung - Last Filed: 11/03/23 12:08> <Jorge Cee - Last Filed: 11/03/23 14:36> Is patient prescribed a controlled substance at d/c from ED?: No Time of Disposition: 17:22 <Amina Carey - Last Filed: 11/04/23 00:14> Clinical Impression: Chest wall pain Disposition: HOME SELF-CARE Condition: Stable Instructions (If sedation given, give patient instructions): Chest Pain (ED) Additional Instructions: Please follow-up with your primary care doctor and return for any new or worsening symptoms Referrals: Roque Vanegas [Primary Care Provider] - 1-2 days
[2023-11-03] MEDS ORDERED: KETOROLAC 15 MG/ML 1 ML VIAL IVP STA (12:41)
[2023-11-03] MEDS ORDERED: LIDOCAINE 5% PATCH TOPICAL STA (12:41)
[2023-11-03 13:08] LABS: Basophils % (A) 0 %; Eosinophils # (A) 0.1 k/uL (0-0.7); Eosinophils % (A) 1 %; HCT 43.8 % (34.0-46.0); HGB 14.6 gm/dL (11.4-16.0); Lymphocytes % (A) 12 %; MCH 30.3 pg (25.0-35.0); MCHC 33.3 g/dL (31.0-37.0); MCV 91.1 fL (80.0-100.0); Mean Platelet Volume 7.2; Monocytes # (A) 0.4 k/uL (0-1.0); Monocytes % (A) 5 %; Neutrophils # (A) 6.8 k/uL (1.3-7.7); Neutrophils % (A) 81 %; Platelet Count 283 k/uL (150-450); RBC 4.81 m/uL (3.80-5.40); RDW 12.5 % (11.5-15.5); WBC 8.4 k/uL (3.8-10.6)
[2023-11-03 13:22] LABS: ALT 23 U/L (4-34); AST 26 U/L (14-36); African American GFR (CKD) >90 (>60 ml/min/1.73 sqM); Albumin 4.8 g/dL (3.5-5.0); Alkaline Phosphatase 69 U/L (38-126); Anion Gap 14 mmol/L; Blood Urea Nitrogen 24 mg/dL (7-17); Calcium 10.8 mg/dL (8.4-10.2); Carbon Dioxide 20 mmol/L (22-30); Chloride 104 mmol/L (98-107); Glucose 86 mg/dL (74-99); Magnesium 2.2 mg/dL (1.6-2.3); Non-African American GFR(CKD) >90 (>60 ml/min/1.73 sqM); Potassium 3.9 mmol/L (3.5-5.1); Sodium 138 mmol/L (137-145); Total Bilirubin 0.7 mg/dL (0.2-1.3); Total Protein 8.4 g/dL (6.3-8.2)
[2023-11-03 13:23] LABS: Partial Thromboplastin Time 25.5 sec (22.0-30.0); Prothrombin Time 10.7 sec (10.0-12.5)
--- NOTE | 2023-11-03 13:25 | XR ---
EXAMINATION TYPE: XR chest 2V DATE OF EXAM: 11/03/2023 COMPARISON: NONE TECHNIQUE: PA and lateral views submitted. HISTORY: Chest pain FINDINGS: The lungs are clear and there is no pneumothorax, pleural effusion, or focal pneumonia. Heart size normal and no overt failure. Osseous structures demonstrate hypertrophic and degenerative changes of the spine. Hyperinflation correlate for seen. IMPRESSION: 1. No acute process.
[2023-11-03] MEDS ORDERED: CYCLOBENZAPRINE 5 MG TAB PO STA (13:55)
[2023-11-03 18:04] VITALS: BP 137/85; PULSE 90; RESP 18
== END 2023-11-03 17:44 | disposition home or self-care (01) ==
LOC: EC 11:24
DX: R07.89 Other chest pain (principal); Z87.891 Personal history of nicotine dependence; Z88.5 Allergy status to narcotic agent; Z79.899 Other long term (current) drug therapy
CPT/HCPCS: 36415; 93005; 85379; 80053; 83735; 84484; 85025; 85610; 85730; 71046; 99285; 96374; J1885

== ENCOUNTER → 2024-08-28 | Outpatient (CLI) | payer BC ==
--- NOTE | 2024-08-28 13:24 | MM ---
Reason for Exam: Additional evaluation requested from prior study. Last mammogram was performed 1 year(s) and 5 month(s) ago. Patient History: Menarche at age 11. First Full-Term at age 19. Risk Values: Annabella 5 year model risk: 0.9%. NCI Lifetime model risk: 7.9%. Prior Study Comparison: 04/19/2017 Bilateral Screening Mammogram, [facility]. 09/28/2019 Bilateral Screening Mammogram, [facility]. 03/24/2021 Bilateral Screening Mammogram, [facility]. 04/13/2023 Bilateral MG 3D screening mammo w/cad, [facility]. Tissue Density: The breasts are extremely dense, which lowers the sensitivity of mammography. Findings: Analyzed By CAD. No distinct mass or distortion. No suspicious microcalcifications. Ultrasound recommended for site of clinical concern left breast. Overall Assessment: Incomplete: need additional imaging evaluation, BI-RAD 0 Management: Diagnostic Breast Ultrasound of the left breast. . Results were given to the patient verbally at the time of exam. Patient should continue monthly self-breast exams. A clinical breast exam by your physician is recommended on an annual basis. This exam should not preclude additional follow-up of suspicious palpable abnormalities. Note on Annabella scores and lifetime risk: 1. A Annabella score greater than 3% is considered moderate risk. If this is the case, consider specialist referral to assess eligibility for a risk reducing agent. 2. If overall lifetime risk for the development of breast cancer is 20% or higher, the patient may qualify for future screening with alternating mammogram and breast MRI. [facility], , 08/28/2024 1:21 PM. Electronically signed and approved by: Ralph Reyes M.D. Radiologis
--- NOTE | 2024-08-28 13:52 | USB ---
Reason for Exam: Clinical finding. Patient History: Menarche at age 11. First Full-Term at age 19. Risk Values: Annabella 5 year model risk: 0.9%. NCI Lifetime model risk: 7.9%. Technique: Method: Targeted. Doppler: Color. Patient Position: Supine. Prior Study Comparison: 03/24/2021 Bilateral Screening Mammogram, [facility]. 04/13/2023 Bilateral MG 3D screening mammo w/cad, [facility]. 06/07/2023 Left MG 3D diag mammo w/cad , [facility]. Findings: The area of palpable concern of the left breast, the axilla of the left breast and the retroareolar of the left breast were scanned. Examination includes presented images by the technologist as well as real time imaging by the undersigned. At the site of patient's clinical concern at approximately 3:00 left breast there appears to be an island of fibroglandular tissue. At real-time there is no evidence for distinct mass. Precautionary six-month follow-up ultrasound is advised.. Overall Assessment: Probably benign, BI-RAD 3 Management: Diagnostic Breast Ultrasound of the left breast in 6 months. A clinical breast exam by your physician is recommended on an annual basis and results should be correlated with mammographic findings. This exam should not preclude additional follow-up of suspicious palpable abnormalities. Results were given to the patient verbally at the time of exam. [facility], , 08/28/2024 1:50 PM. Electronically signed and approved by: Ralph Reyes M.D. Radiologis
== END | disposition home or self-care (01) ==
LOC: RADMAMWWP 12:51
PROVIDERS: ATTEND Family Medicine
CPT/HCPCS: 77062; 77066

== ENCOUNTER 2024-08-31 06:17 | Day surgery (SDC) | payer BC ==
[2024-08-31 06:49] VITALS: TEMP 97.5
[2024-08-31] MEDS: LACTATED RINGERS 1,000 ML IV SCH (07:09)
[2024-08-31] MEDS: IV FLUID CONTINUATION 1,000 ML IV ONE (07:09)
[2024-08-31] MEDS ORDERED: PROPOFOL 10 MG/ML 20 ML VIAL IV ONE (07:21)
--- NOTE | 2024-08-31 07:45 | P.PCN ---
Date of Procedure: 08/31/24 Procedure(s) Performed: Brief history: Patient is a pleasant 49-year-old white female scheduled for an elective upper endoscopy as well as colonoscopy as a part of evaluation of epigastric discomfort and change in bowel habits. She denies any nausea vomiting. Denies any heartburn. Procedure performed: Esophagogastroduodenoscopy biopsy Colonoscopy Preoperative diagnosis: Epigastric pain Change in bowel habits Anesthesia: MAC Procedure: After informed consent was obtained from the patient was brought into the endoscopy unit and IV sedation was administered by anesthesia under continuous monitoring. Initially upper endoscopy was done. The Olympus GF 160 video endoscope was inserted inserted into the mouth and esophagus intubated without any difficulty and was gradually advanced into the stomach and duodenum and carefully examined. The bulb and second part of the duodenum appeared normal. Biopsies were done from the duodenum rule out celiac disease. The scope was then withdrawn into the stomach adequately insufflated with air and upon careful examination the antrum had linear areas of erythema consistent with gastritis and biopsies were done from this area. Mucosa body, cardia and fundus appeared normal. The scope was then withdrawn into the esophagus. The GE junction was l ocated at 40 cm to the incisors. It appeared regular with no erythema erosions or ulcerations. Rest of the esophagus appeared normal. Patient tolerated the procedure well. At this time the patient continued to remain sedation. Initial digital rectal examination was normal. Olympus CF 160 video colonoscope was then inserted into the rectum and gradually advanced to the cecum without any difficulty. Careful examination was performed as the scope was gradually being withdrawn. The prep was excellent. The cecum, ascending colon, transverse colon, descending colon, sigmoid colon and rectum appeared normal. Retroflexion was performed in the rectum and small internal hemorrhoids. Were noted. Patient tolerated the procedure well. Impression: 1. Upper endoscopy revealed mild antral gastritis but no active esophagitis or peptic ulcer disease 2. Colonoscopy was within normal limits with evidence of colorectal neoplasia Recommendations: Findings of this examination were discussed with the patient as well as her family. She was advised to follow the biopsy results. Continue with MiraLAX on a regular basis. Recommended repeat screening colonoscopy in 10 years.
[2024-08-31 08:14] VITALS: BP 163/105; PULSE 60; RESP 16
== END 2024-08-31 08:36 | disposition home or self-care (01) ==
LOC: ORWHC2ENDO 06:17
PROVIDERS: ATTEND Internal Medicine Gastroenterology
DX: K29.50 Unspecified chronic gastritis without bleeding (principal); Z88.5 Allergy status to narcotic agent; Z79.899 Other long term (current) drug therapy
CPT/HCPCS: 43239; 45378; 81025; 88305

== ENCOUNTER → 2025-06-03 | Outpatient (CLI) | payer BC ==
[2025-06-03 15:22] LABS: Anion Gap 11.40 mmol/L (4.00-12.00); BUN/Creat Ratio 23.75 Ratio (12.00-20.00); Blood Urea Nitrogen 19.0 mg/dL (9.0-27.0); Carbon Dioxide 24.6 mmol/L (21.6-31.8); Chloride 103 mmol/L (96-109); Glucose 83 mg/dL (70-110); Potassium 4.2 mmol/L (3.5-5.5); Sodium 139 mmol/L (135-145)
[2025-06-03 15:23] LABS: ALT 21 U/L (8-44); AST 23 U/L (13-35); Albumin 4.5 g/dL (3.8-4.9); Albumin/Globulin Ratio 1.67 Ratio (1.60-3.17); Alkaline Phosphatase 52 U/L (41-126); Calcium 9.9 mg/dL (8.7-10.3); Globulin 2.7 g/dL (1.6-3.3); Total Protein 7.2 g/dL (6.2-8.2)
[2025-06-03 16:05] LABS: HCT 43.2 % (37.2-46.3); HGB 13.7 g/dL (12.0-15.0); MCH 30.2 pg (27.0-32.0); MCHC 31.7 g/dL (32.0-37.0); MCV 95.2 FL (80.0-97.0); NRBC Per 100 WBC 0 X 10*3/uL (0.00-0.01); Platelet Count 282 X 10*3/uL (140-440); RBC 4.54 X 10*6/uL (4.10-5.20); RDW 13.7 % (11.5-14.5); WBC 5.31 X 10*3/uL (4.50-10.00)
== END | disposition home or self-care (01) ==
LOC: LABWHC1 10:45
PROVIDERS: ATTEND Surgery
DX: R10.11 Right upper quadrant pain (principal)
CPT/HCPCS: 36415; 80053; 85027

== ENCOUNTER → 2025-06-07 | Outpatient (CLI) | payer BC ==
--- NOTE | 2025-06-07 08:06 | US ---
EXAMINATION TYPE: US gallbladder DATE OF EXAM: 06/07/2025 COMPARISON: NONE CLINICAL INDICATION: Female, 50 years old with history of R10.11 RUQ PAIN; RUQ pain x 1 year TECHNIQUE: Grayscale and color Doppler imaging of the right upper quadrant was performed. FINDINGS: EXAM MEASUREMENTS: Liver Length: 13.7 cm Gallbladder Wall: 0.16 cm CBD: 0.33 cm Right Kidney: 10.3 x 4.1 x 4.1 cm BURGLAR ALARM INSTALLER NOTES: Pancreas: parts seen appear wnl Liver: wnl Gallbladder: multiple folds seen in neck and body Evidence for sonographic Garcia's sign: No CBD: wnl Right Kidney: wnl The visualized portions of the pancreas are unremarkable. The liver is unremarkable. Gallbladder demo nstrates no wall thickening, gallstones or surrounding fluid. Multiple folds seen. Negative sonograph ic Garcia's sign. Common bile duct is within normal limits. Right kidney demonstrates no hydronephros is, shadowing calculus or solid mass. IMPRESSION: No ultrasound evidence for acute process. [facility], , 06/07/2025 8:04 AM
== END | disposition home or self-care (01) ==
LOC: RADUSWWP 06:46
PROVIDERS: ATTEND Surgery
DX: R10.11 Right upper quadrant pain (principal)
CPT/HCPCS: 76705

== ENCOUNTER → 2025-06-25 | Outpatient (CLI) | payer BC ==
--- NOTE | 2025-06-25 11:54 | NM ---
EXAMINATION TYPE: NM hepatobiliary w EF DATE OF EXAM: 06/25/2025 COMPARISON: Gallbladder ultrasound 06/07/2025 CLINICAL INDICATION: Female, 50 years old with history of R10.11 RIGHT UPPER QUADRANT PAIN; TECHNIQUE: After the intravenous administration of 4.65 mCi Tc 99m Mebrofenin hepatobiliary scintigra phy is performed. Immediate images post injection. FINDINGS: There is satisfactory initial accumulation of tracer by the liver. The gallbladder is visualized wit hin 90 minutes. The small bowel activity is noted within 12 minutes. At one hour 8 ounces of oral e nsure plus is given to mimic CCK and gallbladder ejection fraction is calculated at 49 %, in the norm al range. Therefore there is no scintigraphic evidence of cystic or common bile duct obstruction to suggest acute cholecystitis or gallbladder dyskinesia. IMPRESSION: 1. No evidence of cystic or common bile duct obstruction to suggest acute cholecystitis. 2. No evidence for gallbladder dyskinesia. 3. Slightly delayed gallbladder visualization at 90 minutes. This can be seen with chronic cholecysti tis. [facility], , 06/25/2025 11:52 AM
== END | disposition home or self-care (01) ==
LOC: RADNMMAIN 07:05
PROVIDERS: ATTEND Surgery
DX: R10.11 Right upper quadrant pain (principal)
CPT/HCPCS: 78226; A9537